=== PATIENT | male | born 1970 | race Hispanic/Latino ===

== ENCOUNTER 2019-12-09 22:04 | Emergency (ER) | payer BC ==
[~2019-12-09] VITALS: Ht 177.8 cm; Wt 108.9 kg
[2019-12-10] MEDS ORDERED: OMEPRAZOLE20 MG PO (00:05)
== END 2019-12-10 00:14 | disposition home or self-care (01) ==
LOC: ED 22:04
DX: R10.10 Upper abdominal pain, unspecified (principal)
CPT/HCPCS: 76705; 80053; 81001; 83690; 85025; 96361; 96374; 96375; 99284-25; J1170; J2405; J7030

== ENCOUNTER 2020-05-12 06:40 | Day surgery (SDC) | payer BC ==
[~2020-05-12] VITALS: Ht 177.8 cm; Wt 104.5 kg
--- NOTE | ~2020-05-12 | OR ---
[facility] [address], [place] [address] Draft DATE OF OPERATION: 05/12/2020 SURGEON: Hans Schroeder MD PREOPERATIVE DIAGNOSIS: Phimosis. POSTOPERATIVE DIAGNOSIS: Phimosis. PROCEDURES: Dorsal slit procedure. ANESTHESIA: MAC with 10 mL of 0.25% Marcaine without epinephrine. ESTIMATED BLOOD LOSS: Minimal. COMPLICATIONS: None. SPECIMENS: None. DRAINS: None. INDICATIONS FOR PROCEDURE: Mr. Chatterjee is a very pleasant 49-year-old gentleman, who recently presented to me with complaints of an inability to retract his penis. Physical examination revealed a healthy foreskin, however, I did note phimosis. The remainder of the examination was normal. After a long discussion regarding the risks and benefits of circumcision versus dorsal slit, the patient elected to undergo a dorsal slit procedure. He presents today to undergo the aforementioned surgery. OPERATIVE FINDINGS: 1. Visual inspection of the external genitalia revealed a normal phallus with a glanular meatus. The foreskin is phimotic, but is otherwise healthy. Testicles are descended bilaterally without any intratesticular masses. PATIENT NAME: PANCHO CHATTERJEE OPERATIVE REPORT DATE OF : 72 REPORT #: [id number] PHYSICIAN: HANS SCHROEDER MD PCP: NO PRIMARY CARE PHYSICIAN REPORT IS CONFIDENTIAL AND NOT TO BE RELEASED WITHOUT AUTHORIZATION [facility] [address] [place] [id number] Draft 2. An approximately 2 cm slit was created at the 12 o'clock position of the foreskin. The edges were closed in a continuous running fashion using 4-0 Vicryl. DESCRIPTION OF PROCEDURE: After informed consent was obtained, the patient was taken back to the operating room. He was transferred from the [facility] to the operating room table, where MAC anesthesia was induced. He was placed in the supine position, and his genitalia were prepped and draped in sterile fashion. A 10 mL of 0.25% Marcaine without epi were then injected into his foreskin. A straight clamp was then applied to the 12 o'clock position of the foreskin and clamped there for 1 minute. The crushed tissue was then incised using straight scissors. I then clamped the 12 o'clock portion of the foreskin two more times to create at approximately 2 cm length incision at the 12 o'clock position of the foreskin. Hemostasis was achieved and maintained via electrocautery with a needle tip point. All the while, I was sure to avoid the glans penis during clamping of the foreskin. Once I was satisfied that an adequate amount of tissue had been incised, the edges of the foreskin were then closed in a continuous running fashion using 4-[address] some locking sutures as well as some intermittent sutures present at the lateral edges of the incision, where bleeding was most prominent. The procedure was performed without difficulty. At the end of the procedure, the foreskin was fully retracted and the penis was cleaned of any remaining smegma using iodine solution. Bacitracin was then placed on the incision along with a dry packing. The procedure was then terminated. The patient tolerated the procedure well without any complication. He will now be transferred to the postanesthesia care unit in stable condition. DISPOSITION: Mr. Chatterjee will be discharged to home later today once he awakes from MAC anesthesia. I will contact the family member to let him know how the procedure went. He will be sent home today with Keflex 750 mg p.o. b.i.d. for a total of 7 days, along with Percocet 5/325 mg p.o. q.6 hours p.r.n. pain, dispense #20. He was scheduled return to clinic in three weeks for his first postoperative evaluation. MD RASHARD Moncada/MODL /[id number] PATIENT NAME: PANCHO CHATTERJEE OPERATIVE REPORT DATE OF : 72 REPORT #: [id number] PHYSICIAN: HANS SCHROEDER MD PCP: NO PRIMARY CARE PHYSICIAN REPORT IS CONFIDENTIAL AND NOT TO BE RELEASED WITHOUT AUTHORIZATION [facility] [address] [place] [address] [place], [place] [address] Draft Copies: ~ PATIENT NAME: PANCHO CHATTERJEE OPERATIVE REPORT DATE OF : 72 REPORT #: [id number] PHYSICIAN: HANS SCHROEDER MD PCP: NO PRIMARY CARE PHYSICIAN REPORT IS CONFIDENTIAL AND NOT TO BE RELEASED WITHOUT AUTHORIZATION
[~2020-05-12 06:40] MED LIST: OMEPRAZOLE20 MG PO
--- NOTE | 2020-05-12 11:07 | NUR ---
05/12/20 1107 Sendy Broderick 1018 PT ARRIVED IN PACU SLEEPY WITH OPA IN PLACE. 1033 PT REACTIVE. OPA REMOVED. 1040 DR AT BEDSIDE TALKING WITH PT. 1050 DC INSTRUCTIONS GIVEN. ALL QUESTIONS ANSWERED. 1055 LEFT VIA W/C.
== END 2020-05-12 10:55 | disposition home or self-care (01) ==
LOC: OPS 06:40 → DS 06:40 → OPS 09:45
PROVIDERS: ATTEND Urology
PROC: 0VNTXZZ Release Prepuce, External Approach (ICD-10-PCS; principal; 2020-05-12 09:45)
DX: N47.1 Phimosis (principal); E78.2 Mixed hyperlipidemia; Z88.0 Allergy status to penicillin
CPT/HCPCS: J0690; J2704; J3010; J7121